=== PATIENT | female | born 2000 | race Caucasian/White ===

== ENCOUNTER 2021-03-28 10:05 | Emergency (ER) | payer BC ==
[~2021-03-28] VITALS: Ht 170.2 cm; Wt 61.4 kg
[2021-03-28 10:13] VITALS: TEMP 98.2
[2021-03-28] MEDS ORDERED: MIRENA52 MG IY (10:29)
[2021-03-28] MEDS ORDERED: VYVANSE20 MG PO (10:29)
[2021-03-28 10:39] LABS: COLLECTION METHOD CLEAN CATCH
[2021-03-28 10:42] LABS: BASO # 0.1 K/mm3 (0.0-0.2); BASO % 0.6 % (0.0-2.0); EOS # 0.2 K/mm3 (0.0-0.7); EOS % 1.7 % (0.0-4.0); GRAN # 7.4 K/mm3 (1.4-6.5); HEMATOCRIT 42.7 % (35.0-45.0); HEMOGLOBIN 14.5 g/dl (12.0-15.0); LYMPH # 2.3 K/mm3 (1.2-3.4); MEAN CELL VOLUME 90 fl (80.0-95.0); MEAN CORPUSCULAR HEMOGLOBIN 31 pg (26-32); MEAN CORPUSCULAR HGB CONC 34 g/dl (33.0-37.0); MEAN PLATELET VOLUME 8.8 fl (7.4-10.4); MONO # 0.6 K/mm3 (0.1-0.6); MONO % 5.5 % (1.7-9.3); PLATELET COUNT 258 K/mm3 (130-400); RED BLOOD COUNT 4.73 M/mm3 (4.10-5.30); REDCELL DISTRIBUTION WIDTH-CV 11.8 % (11.5-14.5)
[2021-03-28 11:04] LABS: ALBUMIN 4.2 gm/dL (3.5-5.0); BILIRUBIN,TOTAL 0.5 mg/dL (0.2-1.2); CALCIUM 8.4 mg/dL (8.4-10.2); CREATININE, serum 0.75 mg/dL (0.57-1.11); POTASSIUM 3.6 mmol/L (3.5-4.5); TOTAL PROTEIN 7.5 gm/dL (6.2-8.1)
[2021-03-28 11:05] LABS: PH 5 (5-8); SQUAMOUS EPITHELIAL None Seen /hpf (0-10); URINE APPEARANCE Cloudy (CLEAR/HAZY); URINE BACTERIA None Seen /hpf (NONE SEEN); URINE BILIRUBIN Negative (NEGATIVE); URINE BLOOD 3+ (NEGATIVE); URINE COLOR Red (YELLOW); URINE GLUCOSE 1+ (NEGATIVE); URINE KETONE Negative (NEGATIVE); URINE LEUKOCYTE ESTERASE Negative (NEGATIVE); URINE NITRATE Positive (NEGATIVE); URINE PROTEIN(semi-quant) 2+ (NEGATIVE); URINE RBC >50 /hpf (0-2); URINE UROBILINOGEN >=4.0 (NEGATIVE)
[2021-03-28] MEDS ORDERED: OMNICEF 300MG300 MG PO (11:18)
[2021-03-28 11:36] VITALS: BP 118/78; PULSE 95
== END 2021-03-28 11:37 | disposition home or self-care (01) ==
LOC: COL.ER 10:05
PROVIDERS: Nurse Practitioner Primary Care
DX: N39.0 Urinary tract infection, site not specified (principal); Z32.02 Encounter for pregnancy test, result negative
CPT/HCPCS: J0696; J1885; J2405; J7030

== ENCOUNTER → 2021-08-06 | Outpatient (CLI) | payer BC ==
[~2021-08-06] MED LIST: MIRENA52 MG IY; OMNICEF 300MG300 MG PO; VYVANSE20 MG PO
== END ==
LOC: COL.RAD 15:34
DX: N30.21 Other chronic cystitis with hematuria (principal); N13.30 Unspecified hydronephrosis

== ENCOUNTER → 2021-09-03 | Outpatient (CLI) | payer BC | LOC: COL.RAD 12:23 | DX: N13.5 Crossing vessel and stricture of ureter without hydronephrosis (principal) | CPT/HCPCS: A9562; J1940 ==

== ENCOUNTER 2021-09-25 05:29 | Day surgery (SDC) | payer BC ==
[2021-09-25] VITALS (10 sets, daily range): BP systolic 109–127; BP diastolic 59–78; PULSE 88–114; TEMP 97.7–98
[~2021-09-25] VITALS: Ht 167.6 cm; Wt 72.2 kg
[2021-09-25] MEDS ORDERED: MOBIC15 MG PO (06:04)
[2021-09-25] MEDS ORDERED: TYLENOL 500MG500 MG PO (06:05)
--- NOTE | 2021-09-25 11:16 | NUR ---
PT BROUGHT TO ROOM 349 BY LILLIE GARCIA. FAMILY AT BEDSIDE. POST OP VITALS OBTAINED. ASSESSMENT COMPLETED. PT RATES PN 7/10 IN THE RIGHT RIB. BENEDICT AND BENJI DRAIN IN PLACE. ABDX2 INCISIONS CDI WITH SKIN GLUE. LEFT HAND IV WITH FLUIDS RUNNING. PT ALERT BUT DROWSY. NO OTHER NEEDS AT THIS TIME. CALL LIGHT WITHIN REACH.
--- NOTE | 2021-09-25 12:40 | NUR ---
Pt having complaints of pain in her right side. Schedule Toradol given and discussed plan for pain management with her and family. Pt also had complaints of her right shoulder bothering her. Heat pad applied to shoulder. Pt has tolerated water without complaints of nausea or vomiting. Pt did state that she thought she might feel better if she could have something to eat. Gave some saltine crackers and encouraged her to eat them slowly. Bolden catheter to dependent drainage with tea colored output. No other needs verbalized, will continue to monitor
[2021-09-26 00:40] VITALS: BP 110/65; PULSE 103; TEMP 97.9
[2021-09-26 04:45] VITALS: BP 97/50; PULSE 96; TEMP 97.7
[2021-09-26 07:23] VITALS: BP 111/73; PULSE 96; TEMP 98.3
--- NOTE | 2021-09-26 07:45 | NUR ---
Pt doing okay this morning. She does get nervous/anxious easy. Pt has complaints of feeling nauseated often, no emesis. She was able to eat some crackers this morning and tolerating clear liquids. Scheduled Tylenol given. Bolden catheter removed per order. Pt has ambulated to the restroom and is steady on her feet. Educated her on plan for the day. Pt SO has stayed in the room with her. Linens changed, no other needs, call light within reach
[2021-09-26 11:16] VITALS: BP 102/60; PULSE 95; TEMP 98.1
[2021-09-26] MEDS ORDERED: FLOMAX 0.40.4 MG/CAP PO (11:54)
[2021-09-26] MEDS ORDERED: ROXICODONE 55 MG/TAB PO (11:55)
--- NOTE | 2021-09-26 12:20 | NUR ---
Pt doing okay at this time. Dr Devine has been in to see patient. Order to remove drain. Pt was very anxious about this. Tried to calm her, talking her through breathing while drain was removed. Once drain was removed, pt reported that her overall pain was better. Pt was very shaky during this process. Pts mother was at bedside. Pt has been up multiple times this morning, voiding without difficulty. Pt hoping to get some rest and then encouraged her to go for short walks.
--- NOTE | 2021-09-26 13:31 | NUR ---
stopped by but nothing needed at this time.
--- NOTE | 2021-09-26 15:00 | NUR ---
Pt doing well and reports overall feeling much better. PT has been up walking around and is currently sitting up on the couch. Pt has been to the bathroom and did have a small bowel movement. Pt hoping to get to go home
[2021-09-26 16:07] VITALS: BP 99/64; PULSE 62; TEMP 98.6
--- NOTE | 2021-09-26 16:28 | NUR ---
Reviewed discharge instructions with pt to include prescriptions and to call regarding follow up appointment. All questions answered and educated pt to notify nursing when she is dressed and ready to be escorted out
--- NOTE | 2021-09-26 17:02 | NUR ---
Pt escorted out at this time
== END 2021-09-26 17:02 | disposition home or self-care (01) ==
LOC: SDCO 05:29 → SURG 11:00 → SDCO 09-26 17:02
DX: N13.0 Hydronephrosis with ureteropelvic junction obstruction (principal)
CPT/HCPCS: A4314; C1769; C2617; J0690; J1100; J1170; J1885; J2250; J2270; J2370; J2405; J2704; J2795; J3010; J7120

== ENCOUNTER → 2022-04-21 | Outpatient (CLI) | payer BC ==
[~2022-04-21] MED LIST changes: +FLOMAX 0.40.4 MG/CAP PO; +MOBIC15 MG PO; +ROXICODONE 55 MG/TAB PO; +TYLENOL 500MG500 MG PO
== END ==
LOC: COL.RAD 12:39
DX: N13.0 Hydronephrosis with ureteropelvic junction obstruction (principal)
CPT/HCPCS: A9562; J1940